=== PATIENT | female | born 1990 | race Caucasian/White ===

== ENCOUNTER 2018-11-17 00:05 | Emergency (ER) | payer OTHER ==
[~2018-11-17] VITALS: Ht 162.6 cm; Wt 85.3 kg
[2018-11-17 00:09] VITALS: BP 150/70
--- NOTE | 2018-11-17 00:09 | NUR ---
TO BED #02 AMBULATORY
--- NOTE | 2018-11-17 00:15 | NUR ---
PT STATES "IT FEELS LIKE THERE'S SOMETHING STUCK IN MY THROAT WHEN I SWALLOW", PT ABLE TO SPEAK IN FULL CLEAR SENTENCES, NO FOREIGN BODY/ABNORMALITIES SEEN IN OROPHARYNX, PATIENT ABLE TO SWALLOW SALIVA. DENIES PAIN. SAW PCP AND WAS SENT FOR OUTPATIENT XRAYS WITH CONTRAST, EXAMS WERE NEGATIVE.
--- NOTE | 2018-11-17 00:35 | NUR ---
Dr. Foster at bedside performing MSE.
--- NOTE | 2018-11-17 01:00 | NUR ---
Pt ambulated to restroom with steady gait.
--- NOTE | 2018-11-17 01:20 | NUR ---
Report given to Jaci GANDHI, transfer of care at this time.
--- NOTE | 2018-11-17 01:28 | NUR ---
report received from perla zapata
--- NOTE | 2018-11-17 01:34 | NUR ---
PT TAKEN TO XRAY VIA W/C IN STABLE CONDITION
[2018-11-17] MEDS ORDERED: KETOROLAC 30 MG/ML VIAL IM ONE (02:00)
--- NOTE | 2018-11-17 02:20 | NUR ---
Patient discharged with v/s stable. Written and verbal after care instructions given and explained. Patient verbalized understanding. Ambulatory with steady gait. All questions addressed prior to discharge. Advised to follow up with PMD.
[2018-11-17 02:45] VITALS: BP 150/70
== END 2018-11-17 02:20 | disposition home or self-care (01) ==
LOC: MED 00:05
DX: F45.8 Other somatoform disorders (principal)
CPT/HCPCS: 70360; 81002; 81025; 96372; 99283; J1885; Q0092